=== PATIENT | female | born 1990 | race Two or more races ===

== ENCOUNTER 2023-09-07 14:15 | Outpatient (CLI) | payer OTHER | END 2023-09-07 14:17 | disposition home or self-care (01) | LOC: PRENATAL 14:15 | PROVIDERS: ATTEND Obstetrics & Gynecology Maternal & Fetal Medicine | DX: O35.9XX0 Maternal care for (suspected) fetal abnormality and damage, unspecified, not applicable or unspecified (principal); O35.3XX0 Maternal care for (suspected) damage to fetus from viral disease in mother, not applicable or unspecified; O44.02 Complete placenta previa NOS or without hemorrhage, second trimester; Z3A.21 21 weeks gestation of pregnancy; Z14.8 Genetic carrier of other disease ==

== ENCOUNTER 2023-11-23 10:25 | Outpatient (CLI) | payer OTHER | END 2023-11-23 10:26 | disposition home or self-care (01) | LOC: PRENATAL 10:25 | PROVIDERS: ATTEND Obstetrics & Gynecology Maternal & Fetal Medicine | DX: O26.849 Uterine size-date discrepancy, unspecified trimester (principal); O36.8199 Decreased fetal movements, unspecified trimester, other fetus; Z14.8 Genetic carrier of other disease; Z3A.32 32 weeks gestation of pregnancy ==

== ENCOUNTER 2024-01-06 13:45 | Inpatient (IN) | payer OTHER ==
[~2024-01-06] VITALS: Ht 157.5 cm; Wt 56.7 kg
[2024-01-07] VITALS (9 sets, daily range): BP systolic 108–136; BP diastolic 52–93
[2024-01-07] MEDS ORDERED: PRENATAL TABLE1 EAC4 (14:48)
[2024-01-07] MEDS ORDERED: NASAL MIST126 ML (14:48)
[2024-01-07] MEDS ORDERED: MEPERIDINE HCL 25 MG/ML AMPUL IV ONE (16:15)
[2024-01-07] MEDS ORDERED: PROMETHAZINE HCL 25 MG/ML AMPUL IV ONE (16:30)
[2024-01-08] MEDS ORDERED: ERYTHROMYCIN BASE OPHT 1GM EACH TUBE OP ONE (00:15)
[2024-01-08] MEDS ORDERED: OXYTOCIN 1,000 ML IV ONE (00:15)
[2024-01-08] MEDS ORDERED: LIDOCAINE HCL 1% 10ML VIAL PERCUT ONE (00:15)
[2024-01-08] MEDS ORDERED: CHLORHEXIDINE GLUCONATE 120 ML BOTTLE TOP ONE (00:15)
[2024-01-08] MEDS ORDERED: OXYTOCIN 500 ML IV ONE (00:15)
[2024-01-08] MEDS ORDERED: ACETAMINOPHEN 500 MG GEL..CAP PO PRN (00:30)
[2024-01-08] MEDS ORDERED: OXYTOCIN 1,000 ML IV SCH (00:30)
[2024-01-08 01:57] VITALS: BP 99/58
[2024-01-08 03:28] LABS: HEMATOCRIT 43.7 % (36.0-45.00); HEMOGLOBIN 14.2 g/dL (12.0-15.00); MEAN CELL VOLUME 84.3 fL (80.00-100.00); MEAN CORPUSCULAR HEMOGLOBIN 27.4 pg (27.00-32.0); MEAN CORPUSCULAR HGB CONC 32.5 g/dl (32.0-36.0); PLATELET COUNT 268 K/uL (150-450); RED BLOOD COUNT 5.18 M/uL (4.00-6.00); RED CELL DISTRIBUTION WIDTH 13.2 % (11.5-14.5)
[2024-01-08] MEDS ORDERED: PNV,CALCIUM 72/IRON/FOLIC ACID 1 TAB TABLET PO SCH (09:00)
[2024-01-08 16:41] VITALS: BP 100/65
[2024-01-08 21:21] VITALS: BP 109/72
[2024-01-09] VITALS: BP 97/57
[2024-01-09 04:00] VITALS: BP 107/69
[2024-01-09 08:36] VITALS: BP 107/68
== END 2024-01-09 14:15 | disposition home or self-care (01) | DRG 807 ==
LOC: LDR 01-07 13:15 → OB/GYN 01-07 23:25
PROVIDERS: Obstetrics & Gynecology; ADMIT Specialist; ATTEND Specialist
PROC: 10E0XZZ Delivery of Products of Conception, External Approach (ICD-10-PCS; principal; 2024-01-07)
PROC: 0KQM0ZZ Repair Perineum Muscle, Open Approach (ICD-10-PCS; 2024-01-07)
PROC: 4A1HXCZ Monitoring of Products of Conception, Cardiac Rate, External Approach (ICD-10-PCS; 2024-01-07)
DX: O70.1 Second degree perineal laceration during delivery (principal); Z37.0 Single live birth; Z3A.38 38 weeks gestation of pregnancy; Z20.822 Contact with and (suspected) exposure to COVID-19

== ENCOUNTER 2024-01-06 20:55 | Outpatient (CLI) | payer OTHER ==
[~2024-01-06] VITALS: Ht 157.5 cm; Wt 56.7 kg
[2024-01-06 19:59] VITALS: BP 125/68
[2024-01-06] MEDS ORDERED: RINGERS SOLUTION,LACTATED 150 ML IV SCH (21:15)
[2024-01-06 21:32] LABS: URINE APPEARANCE Clear; URINE BILIRRUBIN Negative (NEGATIVE); URINE BLOOD Small; URINE COLOR Yellow; URINE GLUCOSE Negative (NEGATIVE); URINE KETONE Negative (NEGATIVE); URINE LEUKOCYTE Negative; URINE NITRATE Negative; URINE PROTEIN Negative (NEGATIVE); URINE UROBILINOGEN 0.2 E.U./dl
[2024-01-06 21:33] LABS: HEMATOCRIT 40.8 % (36.0-45.00); HEMOGLOBIN 13.4 g/dL (12.0-15.00); MEAN CELL VOLUME 83.6 fL (80.00-100.00); MEAN CORPUSCULAR HEMOGLOBIN 27.4 pg (27.00-32.0); MEAN CORPUSCULAR HGB CONC 32.8 g/dl (32.0-36.0); PLATELET COUNT 279 K/uL (150-450); RED BLOOD COUNT 4.87 M/uL (4.00-6.00); RED CELL DISTRIBUTION WIDTH 13.2 % (11.5-14.5)
[2024-01-06 21:34] LABS: URINE BACTERIA 13.8 uL (0.0-1933); URINE EPITHELIAL CELLS 12.3 uL (0.0-38.8); URINE WBC 2.9 uL (0.0-23.2)
[2024-01-06 21:39] LABS: URINE RBC 0.7 uL (0.0-20.8)
[2024-01-06 23:33] VITALS: BP 106/52
[2024-01-07 03:35] VITALS: BP 96/51
[2024-01-07 08:14] VITALS: BP 115/66
[2024-01-07 11:33] VITALS: BP 121/63
[2024-01-07 13:00] VITALS: BP 121/63
[2024-01-07] MEDS ORDERED: PRENATAL TABLE1 EAC4 (14:48)
[2024-01-07] MEDS ORDERED: NASAL MIST126 ML (14:48)
== END 2024-01-07 14:21 | disposition still patient (30) ==
LOC: OBS/DEL 20:55
PROVIDERS: Obstetrics & Gynecology; ATTEND Specialist
DX: O26.893 Other specified pregnancy related conditions, third trimester (principal); Z3A.38 38 weeks gestation of pregnancy